=== PATIENT | female | born 1985 | race Caucasian/White ===

== ENCOUNTER → 2024-12-21 | Outpatient (CLI) | payer BC, SELFPAY ==
--- NOTE | 2024-12-21 14:30 | XR_ITS ---
Examination: Breast ultrasound complete, bilateral Date and time of exam: December 21, 2024 1421 hours INDICATIONS: Palpated lumps in both breasts beginning 3 weeks ago, diagnosis fibrocystic breast disease Technique: Real-time grayscale ultrasonographic imaging bilateral breasts, including all 4 quadrants as well as nipple retroareolar and axillary regions. Findings: Sonographic images right breast 8:00 cyst 5 x 3 mm 25 mm right axillary lymph node No solid nodules Left breast no cystic or solid mass Dilated ducts bilateral lateral bladder IMPRESSION: BI-RADS Category 2: Benign findings
== END | disposition home or self-care (01) ==
LOC: CDIM 14:04
PROVIDERS: PCP Family Medicine; Referring Provider Physician Assistant Medical; Visit Provider Physician Assistant Medical
DX: N60.19 Diffuse cystic mastopathy of unspecified breast (principal)
CPT/HCPCS: 76641

== ENCOUNTER 2025-06-01 05:45 | Day surgery (SDC) | payer BC, SELFPAY ==
--- NOTE | 2025-05-28 19:43 | ESHP_ITS ---
RE: JIMMY CATHERINE : 1985 DATE OF ADMISSION: 06/01/2025 HISTORY OF PRESENT ILLNESS: This is a 39-year-old 3, para 1-0-2-1 with abnormal uterine bleeding who presents for endometrial ablation. MEDICATIONS: Lo Loestrin, control pill 1 p.o. daily. SOCIAL HISTORY: She denies any alcohol drug use or smoking. 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 PAST MEDICAL HISTORY: Polycystic ovarian syndrome, irritable bowel syndrome, obesity, late tuberculosis infection treated in 1998 with INH, sleep apnea, hypercholesterolemia, scoliosis, osteoarthritis, bariatric surgery. FAMILY HISTORY: Lung cancer, diabetes, heart disease, osteoporosis, clotting disorder, stroke. PAST SURGICAL HISTORY: Bariatric surgery.. PHYSICAL EXAMINATION: VITAL SIGNS: Blood pressure 110/70, heart rate 88, respirations 18, temperature 98.6. HEENT: Oropharynx and sclerae are clear. LUNGS: Clear to auscultation bilaterally. HEART: Regular rate and rhythm. ABDOMEN: Nontender. EXTREMITIES: Nontender. SKIN: No gross rashes or lesions. NEUROLOGIC: No focal deficit. ASSESSMENT AND PLAN: Abnormal uterine bleeding. PLAN: Hysteroscopy, fractional dilatation, curettage, NovaSure endometrial ablation. Informed consent was obtained. The patient was made aware of the risks, complications, alternatives, and benefits of the proposed procedure and she agrees. She is aware of the risk of injury to bowel bladder, adjacent organs, pulmonary embolism, deep vein thrombosis, pelvic infection, reoperation to prior injury to internal organs, anesthesia complications, the possibility that a laparotomy needs to be performed to repair organs or control bleeding, and the possibility that the procedure is not able to be completed due to severe adhesions or technical difficulty. She verbalized understanding and agrees to proceed with the procedure with an understanding of the risks and complications. DT: 18:46:53 TT: 19:14:00 Ref: [id number] - TID: [id number] [place]
[2025-05-31 10:48] VITALS: BMI 28.6
[2025-05-31 11:29] LABS: Basophils # (Auto) 0.1 Thou/mm3 (0.0-0.2); Basophils % (Auto) 1 % (0-2.5); Eosinophils # (Auto) 0.1 Thou/mm3 (0.0-0.5); Eosinophils % (Auto) 2 % (0-10); Hematocrit 39.1 % (36.0-46.0); Hemoglobin 13.3 g/dL (12.0-16.0); Immature Granulocytes Auto 0.03 Thou/mm3 (0.00-0.00); Lymphocytes # (Auto) 2.4 Thou/mm3 (1.0-4.8); Lymphocytes % (Auto) 39 % (10-50); Mean Corpuscular HGB Conc 34.0 g/dl (31.0-37.0); Mean Corpuscular Hemoglobin 29.6 pg (25.0-35.0); Mean Corpuscular Volume 87 fL (80-100); Monocytes # (Auto) 0.5 Thou/mm3 (0.0-0.8); Monocytes % (Auto) 8 % (0-12); Neutrophils # (Auto) 3.0 Thou/mm3 (1.8-7.7); Neutrophils % (Auto) 49 % (37-80); Nucleated Red Blood Cell # 0.00 Thou/mm3 (0.00-0.00); Nucleated Red Blood Cell % 0 /100 WBC (0); Platelet Count 290 Thou/mm3 (140-440); RDW Standard Deviation 38.8 fL (36.4-46.3); Red Blood Count 4.49 Miln/mm3 (4.00-5.20); White Blood Count 6.1 Thou/mm3 (3.6-11.0)
[2025-05-31 11:39] LABS: INR 1.0 (0.9-1.3); Partial Thromboplastin Time 25.1 Seconds (22.0-36.0); Prothrombin Time 10.8 Seconds (9.0-12.2)
[2025-05-31 12:01] LABS: Alanine Aminotransferase 8 U/L (10-49); Albumin, Serum 4.1 gm/dL (3.5-5.0); Albumin/Globulin Ratio 1.6 (1.2-2.2); Alkaline Phosphatase 54 U/L (46-116); Anion Gap 6 (7-16); Aspartate Amino Transferase 13 U/L (0-34); BUN/Creatinine Ratio 20 Ratio (12-20); Beta HCG,Quantitative < 1 mIU/mL (<5.0); Bilirubin,Total 0.6 mg/dL (0.3-1.2); Blood Urea Nitrogen 14 mg/dL (9-23); Calcium 9.1 mg/dL (8.3-10.6); Calcium (Corrected) 9.1 mg/dL (8.5-10.1); Carbon Dioxide 27.2 mMol/L (20.0-31.0); Chloride 109 mMol/L (98-107); Creatinine (Component) 0.7 mg/dL (0.6-1.3); Estimated Creatinine Clearance 107.5 mL/min (>60); Globulin 2.5 gm/dL (2.3-3.5); Glucose 84 mg/dL (74-106); Osmolality,Calculated 282 (275-295); Potassium 3.5 mMol/L (3.4-5.1); Sodium 142 mMol/L (136-145); Total Protein 6.6 gm/dL (5.7-8.2); eGFR > 60 See Note
[2025-06-01] VITALS (7 sets, daily range): BP systolic 113–127; BP diastolic 62–84; PULSE 60–90; RESP 14–20; TEMP 36.3–37.2; O2SAT 99–100; BMI 29.0
--- NOTE | 2025-06-01 07:15 | CHAP ---
Visited with patient and gave comfort, encouragement and prayer.
--- NOTE | 2025-06-01 08:12 | SUR.PHASEI ---
0812 Patient arrived to recovery resting comfortably in [facility], on oxygen 4L via oxy mask, breathing unlabored, vital signs stable, denies pain, dressing intact to vaginal area; peripad, no bleeding noted, report received from Avelino FERNANDES and Мария ARNOLD
--- NOTE | 2025-06-01 08:20 | ESOP_ITS ---
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 She was placed in the dorsal lithotomy position and prepped and draped the usual sterile fashion.? A timeout was performed.? A bivalve speculum was inserted.? A single-tooth tenaculum was used to grasp the anterior lip of the cervix.? The uterine cavity was sounded to 8.0 cm.? The cervical length measured 3.0 cm.? The cervix was dilated to accommodate the 5.5 mm Omni hysteroscope.? Using the Aquilex system and normal saline as the distending media the hysteroscopy was performed and an endometrial polyp measuring 5 x 2 mm was visualized in the uterine cavity.?? The Using the MyoSure Reach device the polypectomy was performed and specimen sent to pathology. The fluid deficit at the end of the MyoSure procedure was 0.? The endocervix was curetted with the Kevorkian curette and specimen sent to pathology.? The uterine cavity was curetted with a 5 mm curette and specimen sent to pathology.? The NovaSure catheter was plugged into the controller.? It went through its purge cycle.? The array was deployed and was found to be complete and intact with the width meter working properly. The Novasure catheter was appropriately seated in the uterine cavity.? The cavity length was 5.0 cm, ?the cavity width was 2.7 cm the power setting was 74 W.? The carbon dioxide cavity integrity assessment test was performed.? The uterine cavity was intact.? The controller was enabled and the ablation was performed for a total of 33 seconds before the controller shut off.? The array was retracted into the sheath and the catheter was removed from the uterine cavity.? The array was redeployed and found to be complete and i ntact.? There was bleeding at the anterior lip of the cervix at the site of the tenaculum and using the Bovie cautery hemostasis was achieved.? There was no bleeding at the end of the procedure.? All instruments were removed from the vagina.? She was reversed from general anesthesia in supine position and transferred to the cover room in stable condition.? She tolerated the procedure well.? Counts were correct.? I discussed with the patient's family the nature of her condition, the intraoperative findings, the expectation for recovery, all questions answered. Specimen: other (1. Endometrial polyp. 2. Endocervical Curettings. 3. Endometrial Curettings. ) Estimated blood loss (ml): 5 Findings: Uterus sounded to 8.0 cm anteverted Cervical length is 3.0 cm Uterine cavity length 5.0 cm Uterine cavity width 2.7 cm Power setting 74 W Duration of ablation 33 seconds Endometrial polyp 5 x 2 mm Normal uterine cavity shape Complications: none Surgical staff Operation Date: 06/01/25 07:30 Case Staff APPLICATION SOFTWARE DEVELOPER: Enmanuel Whaley Diagnosis Discharge Diagnosis (1) Abnormal uterine bleeding due to endometrial polyp: Status: Acute (2) Status post endometrial ablation: Status: Acute Problem List Completed Was Problem List Reviewed/Reconciled?: Yes
--- NOTE | 2025-06-01 09:02 | SUR.PHASEII ---
0902 Patient meets discharge criteria from recovery, awake and alert, breathing unlabored, vital signs stable, denies pain, dressing intact; no bleeding noted, eating ice chips; denies nausea, assisted with dressing into her clothing by her , discharge instructions given to patient and patients , signed discharge instructions. Patient given all her belongings prior to discharge, transported via wheelchair and left in a private vehicle.
== END 2025-06-01 09:02 | disposition home or self-care (01) ==
PROVIDERS: PCP Family Medicine; Referring Provider Specialist; Visit Provider Specialist
PROC: 0U5B8ZZ Destruction of Endometrium, Via Natural or Artificial Opening Endoscopic (ICD-10-PCS; CPT 58563; principal; 2025-06-01 07:30)
DX: N84.0 Polyp of corpus uteri (principal); N93.9 Abnormal uterine and vaginal bleeding, unspecified
CPT/HCPCS: 58563; 36415; 80053; 84702; 85025; 85610; 85730; 86850; 86900; 86901; A4217; A4649; J0131; J0690; J1885; J2250; J2704; J3010; J3490; J1596